=== PATIENT | female | born 1990 | race Caucasian/White ===

== ENCOUNTER 2016-09-30 13:04 | Emergency (ER) | payer OTHER ==
[~2016-09-30 13:04] MED LIST: IBUP800T23 PO; MEDR4PAK3 PO; ROBA750T3 PO
[2016-09-30 13:11] VITALS: BP 145/84; PULSE 89; RESP 16; TEMP 98.3; O2SAT 97
[2016-09-30] MEDS ORDERED: ALPR1TAB3 PO (13:14)
[2016-09-30] MEDS ORDERED: SODIUM CHLOR 0.9% 1000 ML INJ 1,000 ML IV ONE (13:17)
[2016-09-30] MEDS ORDERED: HYDROmorphone HCL PF 1 MG/ML VIAL IV PUSH ONE (13:30)
[2016-09-30] MEDS ORDERED: ONDANSETRON HCL 4 MG/2 ML VIAL IV PUSH ONE (13:30)
--- NOTE | 2016-09-30 13:47 | PD ---
HPI Chief Complaint: Abdominal Pain Time Seen by Provider: 13:42 Travel History International Travel<30 days: No Contact w/Intl Traveler<30days: No Traveled to known affect area: No History of Present Illness HPI 26-year-old female that presents to the ED for evaluation of severe umbilical pain as well as nausea and vomiting. Per patient and coworker there were on a break imaging lunch at a salad place and she started eating her side she felt somewhat upset. Per patient she had a slight ache but it eventually became more severe to the point that now is 10 out of 10. Per patient she does have a history of gastric bypass. She has had no issues since. She denies any other issues. She states that she feels nauseous and vomit. Pain does not radiate. On my exam patient is symptoms severe pain and discomfort. She states that she has an allergy to morphine. She denies any chest pain or shortness of breath. No leg pain or arm pain. Vomited with no blood. No bowel movement issues. These all look for less than an hour ago. Coworker did not eat any of the same salad that the patient ate. PFSH Past Medical History Anxiety: Yes Diminished Hearing: No Gastrointestinal Disorders: Yes ?: Unknown Past Surgical History Other Surgery: Yes (gastric by pass) Social History Alcohol Use: Yes (on occasion) Tobacco Use: No Substance Use: No Allergies-Medications (Allergen,Severity, Reaction): Coded Allergies: Morphine (Verified Allergy, Intermediate, Hives, 09/30/16) Uncoded Allergies: BOUNCE DRYER SHEET OR DETERGENT (Allergy, Severe, Anaphylaxis, 10/11/14) Reported Meds & Prescriptions Reported Meds & Active Scripts Active Zofran (Ondansetron HCl) 4 Mg Tab 4 Mg PO Q6HR PRN Bentyl (Dicyclomine HCl) 20 Mg Tab 20 Mg PO TID Reported Alprazolam 1 Mg Tab 1 Mg PO Q6H PRN Review of Systems General / Constitutional: No: Fever, Chills, Weight Gain, Weight Loss, Other Eyes: No: Diploplia, Blurred Vision, Photophobia, Drainage, Redness, Foreign Body Sensation, Pain, Tearing, Blind Spots, Visual changes, Blindness, Other HENT: No: Headaches, Vertigo, Lightheadedness, Sore Throat, Rhinitis, Rhinorrhea, Congestion, Nosebleed, Neck Stiffness, Neck Pain, Masses, Gingival Bleeding, Dental Difficulties, Ear Discharge, Earache, Other Cardiovascular: No: Chest Pain or Discomfort, Palpitations, Irregular Rhythm, Tachycardia, Diaphoresis, Syncope, Dyspnea on exertion, Varicosities, Edema, Cyanosis, Varicosities, Phlebitis, Claudication, Other Respiratory: No: Cough, Shortness of Breath, Wheezing, Sneezing, Orthopnea, Hemoptysis, Stridor, Night Sweats, Pleuritic Pain, Other Gastrointestinal: Positive: Nausea, Vomiting, Abdominal Pain, No: Diarrhea, Hematemesis, Hematochezia, Constipation, Changes in Bowel Habits, Indigestion, Dysphagia, Loss of Appetite, Other Genitourinary: No: Urgency, Frequency, Dysuria, Nocturia, Hematuria, Decreased Urinary Output, Oliguria, Hesitancy, Dribbling, Incontinence, Pelvic Pain, Flank Pain, Dyspareunia, Discharge, Dysmenorrhea, Menorrhagia, Metorrhagia, Vaginal Bleeding, Other Musculoskeletal: No: Myalgias, Arthralgias, Limited ROM, Weakness, Cramping, Edema, Pain, Atrophy, Other Skin: No Rash, No Itching, No Dryness, No Lumps, No Hives, No Change in Pigmentation, No Change in nails, No Alopecia, No Lesions, No Breast Lumps, No Breast Tenderness, No Breast Swelling, No Other Neurologic: No: Weakness, Dizziness, Syncope, Focal Abnormalities, Coordination Problem, Tremor, Ataxia, Headache, Change in Mentation, Slurred Speech, Paresthesia, Incontinence, Seizures, Sensory Disturbance, Other Psychiatric: No: Anxiety, Depression, Suicidal Ideations, Disorder of Thought, Mood Disorder, Substance Abuse, Homicidal Ideation, Other Endocrine: No: Heat Intolerance, Cold Intolerance, Polyuria, Polydipsia, Other Hematologic/Lymphatic: No: Easy Bruising, Lymph Node Enlargement, Other Physical Exam Narrative GENERAL: SKIN: Warm and dry. HEAD: Atraumatic. Normocephalic. EYES: Pupils equal and round. No scleral icterus. No injection or drainage. ENT: No nasal bleeding or discharge. Mucous membranes pink and moist. Tongue is midline. No uvula deviation. NECK: Trachea midline. No JVD. CARDIOVASCULAR: Regular rate and rhythm. No murmurs, S3, S4. RESPIRATORY: No accessory muscle use. Clear to auscultation. Breath sounds equal bilaterally. GASTROINTESTINAL: Abdomen soft, tender to palpation in the umbilical region, nondistended. Hepatic and splenic margins not palpable. MUSCULOSKELETAL: Extremities without clubbing, cyanosis, or edema. No obvious deformities. Full range of motion of the upper and lower extremities bilaterally. 2+ pulses bilaterally. NEUROLOGICAL: Awake and alert. No obvious cranial nerve deficits. Motor grossly within normal limits. Five out of 5 muscle strength in the arms and legs. Normal speech. PSYCHIATRIC: Appropriate mood and affect; insight and judgment normal. Data Data Last Documented VS Vital Signs Date Time Temp Pulse Resp B/P Pulse Ox O2 Delivery O2 Flow Rate FiO2 09/30/16 14:03 72 18 116/68 98 Room Air 09/30/16 13:11 98.3 Orders Complete Blood Count With Diff (09/30/16 13:17) Comprehensive Metabolic Panel (09/30/16 13:17) Lipase (09/30/16 13:17) Urinalysis - C+S If Indicated (09/30/16 13:17) Iv Access Insert/Monitor (09/30/16 13:17) Ed Urine Pregnancytest Poc (09/30/16 13:17) Ondansetron Inj (Zofran Inj) (09/30/16 13:30) Sodium Chlor 0.9% 1000 Ml Inj (Ns 1000 M (09/30/16 13:17) Hydromorphone Pf Inj (Dilaudid Pf Inj) (09/30/16 13:30) Ct Abd/Pel W Iv Contrast(Rout) (09/30/16 ) Iohexol 350 Inj (Omnipaque 350 Inj) (09/30/16 14:42) Labs Laboratory Tests Test 09/30/16 13:15 White Blood Count 6.8 TH/MM3 Red Blood Count 4.48 MIL/MM3 Hemoglobin 10.5 GM/DL Hematocrit 33.1 % Mean Corpuscular Volume 73.9 FL Mean Corpuscular Hemoglobin 23.4 PG Mean Corpuscular Hemoglobin 31.6 % Concent Red Cell Distribution Width 15.9 % Platelet Count 413 TH/MM3 Mean Platelet Volume 7.6 FL Neutrophils (%) (Auto) 49.6 % Lymphocytes (%) (Auto) 38.0 % Monocytes (%) (Auto) 10.2 % Eosinophils (%) (Auto) 1.5 % Basophils (%) (Auto) 0.7 % Neutrophils # (Auto) 3.4 TH/MM3 Lymphocytes # (Auto) 2.6 TH/MM3 Monocytes # (Auto) 0.7 TH/MM3 Eosinophils # (Auto) 0.1 TH/MM3 Basophils # (Auto) 0.0 TH/MM3 CBC Comment AUTO DIFF Differential Comment AUTO DIFF CONFIRMED Urine Color YELLOW Urine Turbidity CLEAR Urine pH 7.0 Urine Specific [place] 1.017 Urine Protein NEG mg/dL Urine Glucose (UA) NEG mg/dL Urine Ketones NEG mg/dL Urine Occult Blood NEG Urine Nitrite NEG Urine Bilirubin NEG Urine Urobilinogen LESS THAN 2.0 MG/DL Urine Leukocyte Esterase NEG Urine RBC LESS THAN 1 /hpf Urine WBC LESS THAN 1 /hpf Urine Squamous Epithelial <1 /hpf Cells Urine Mucus FEW /lpf Microscopic Urinalysis Comment CULT NOT INDICATED Sodium Level 140 MEQ/L Potassium Level 3.9 MEQ/L Chloride Level 107 MEQ/L Carbon Dioxide Level 22.7 MEQ/L Anion Gap 10 MEQ/L Blood Urea Nitrogen 14 MG/DL Creatinine 0.82 MG/DL Estimat Glomerular Filtration 83 ML/MIN Rate Random Glucose 86 MG/DL Calcium Level 8.9 MG/DL Total Bilirubin 0.2 MG/DL Aspartate Amino Transf 22 U/L (AST/SGOT) Alanine Aminotransferase 26 U/L (ALT/SGPT) Alkaline Phosphatase 71 U/L Total Protein 7.5 GM/DL Albumin 4.0 GM/DL Lipase 160 U/L [facility] Medical Decision Making Medical Screen Exam Complete: Yes Emergency Medical Condition: Yes Medical Record Reviewed: Yes Interpretation(s) CBC & BMP Diagram 09/30/16 13:15 LFTs and lipase within normal limits. Urine negative for acute disease. CT of the abdomen and pelvis show no sign of acute disease. Differential Diagnosis Indigestion versus gastroenteritis versus gastritis versus acute abdomen versus obstruction versus appendicitis Narrative Course 26-year-old female that presents to the ED for evaluation of umbilical pain. Patient was properly examined and was found to have signs and symptoms consistent appears to be likely as enteritis but cannot completely rule out obstruction secondary to the severity of her symptoms and her recent surgery. Patient is agreeable to plan. Patient was given IV fluids as well as pain medications. Labs and imaging ordered. Labs and imaging showed no sign of acute disease. Labs were essentially unremarkable for acute infection. CT was negative. Patient was reassessed after given IV medications and feels much improved. From history and physical this appears to be likely gastroenteritis versus food poisoning. At this time I recommend liquid diet. Case was discussed with my attending Dr. Thapa who evaluated the patient with me and agrees with plan. Patient will be sent home with prescription for Bentyl and Zofran. Told to do liquid diet. See ED for any worsening symptoms. Diagnosis Primary Impression: Food poisoning Qualified Code: T62.91XA - Food poisoning, accidental or unintentional, initial encounter Patient Instructions: General Instructions Departure Forms: Tests/Procedures, Work Release Enter return to work date: Oct 02, 2016 Additional Instructions: Take medication as prescribed. Liquid diet until better. Follow up with PCP. See ED for any worsening symptoms. Med/Other Pt SpecificInfo: Prescription(s) given Scripts Ondansetron (Zofran)4 Mg Tab4 Mg PO Q6HR PRN (NAUSEA OR VOMITING) #20 TAB Prov:Jason Thapa MD 09/30/16 Dicyclomine (Bentyl)20 Mg Tab20 Mg PO TID #20 TAB Prov:Jason Thapa MD 09/30/16 Disposition: 01 DISCHARGE HOME Condition: Stable Chucky Jasso Sep 30, 2016 13:47
[2016-09-30 13:50] LABS: AUTOMATED NEUTROPHIL # 3.4 TH/MM3 (1.8-7.7); BASOPHIL % 0.7 % (0.0-2.0); EOSINOPHIL # 0.1 TH/MM3 (0-0.4); EOSINOPHIL % 1.5 % (0.0-4.0); HEMATOCRIT 33.1 % (35.0-46.0); LYMPHOCYTE # 2.6 TH/MM3 (1.0-4.8); MEAN CELL VOLUME 73.9 FL (80.0-100.0); MEAN CORPUSCULAR HEMOGLOBIN 23.4 PG (27.0-34.0); MEAN CORPUSCULAR HGB CONC 31.6 % (32.0-36.0); MONO % 10.2 % (0.0-8.0); NEUT % 49.6 % (16.0-70.0); PLATELET COUNT 413 TH/MM3 (150-450); RED BLOOD COUNT 4.48 MIL/MM3 (4.00-5.30); RED CELL DISTRIBUTION WIDTH 15.9 % (11.6-17.2); WHITE BLOOD COUNT 6.8 TH/MM3 (4.0-11.0)
[2016-09-30 13:51] LABS: HEMO FLAGS AUTO DIFF
[2016-09-30 14:00] LABS: BLOOD, URINE NEG (NEG); COMMENT (UR) CULT NOT INDICATED; CULTURE IF INDICATED CULT NOT INDICATED; GLUCOSE,URINE NEG (NEG); KETONE, URINE NEG (NEG); MUCUS URINE FEW /lpf (OCC); NITRITE,URINE NEG (NEG); SQUAMOUS EPITHELIAL CELL URINE <1 /hpf (0-5); URINE COLOR YELLOW (YELLW/STRAW)
[2016-09-30 14:03] VITALS: BP 116/68; PULSE 72; RESP 18; O2SAT 98
[2016-09-30 14:16] LABS: ALKALINE PHOSPHATASE 71 U/L (45-117); TOTAL BILIRUBIN ADULT 0.2 MG/DL (0.2-1.0)
[2016-09-30 14:21] LABS: ALT (GPT) 26 U/L (10-53); ANION GAP 10 MEQ/L (5-15); AST (GOT) 22 U/L (15-37); BICARBONATE 22.7 MEQ/L (21.0-32.0); BLOOD UREA NITROGEN 14 MG/DL (7-18); CHLORIDE 107 MEQ/L (98-107); GLOMERULAR FILTRATION RATE 83 ML/MIN (>89); POTASSIUM 3.9 MEQ/L (3.5-5.1); SODIUM (NA) 140 MEQ/L (136-145)
[2016-09-30] MEDS ORDERED: IOHEXOL 350 MG/ML 10 ML VIAL (for RAD DIAG) IV ONE (14:42)
[2016-09-30 14:48] LABS: SCAN/DIFF AUTO DIFF CONFIRMED
--- NOTE | 2016-09-30 15:08 | RADRPT ---
EXAM DATE/TIME: 09/30/2016 14:22 [facility] COMPARISON: No previous studies available for comparison. INDICATIONS : Umbilical pain, nausea and vomiting. IV CONTRAST: 85 cc Omnipaque 350 (iohexol) IV ORAL CONTRAST: No oral contrast ingested. RADIATION DOSE: 10.02 CTDIvol (mGy) MEDICAL HISTORY : None SURGICAL HISTORY : Gastric bypass. ENCOUNTER: Initial ACUITY: 1 day PAIN SCALE: 3/10 LOCATION: Umbilical TECHNIQUE: Volumetric scanning of the abdomen and pelvis was performed. Using automated exposure control and ad justment of the mA and/or kV according to patient size, radiation dose was kept as low as reasonably achievable to obtain optimal diagnostic quality images. FINDINGS: LOWER LUNGS: The visualized lower lungs are clear. LIVER: Homogeneous density without lesion. There is no dilation of the biliary tree. No calcified gallston es. Gallbladder seen as a luminal structure without wall thickening. SPLEEN: Normal size without lesion. PANCREAS: Within normal limits. KIDNEYS: Normal in size and shape. There is no mass, stone or hydronephrosis. ADRENAL GLANDS: Within normal limits. VASCULAR: There is no aortic aneurysm. BOWEL/MESENTERY: The stomach, small bowel, and colon demonstrate no acute abnormality. There is no free intraperitone al air or fluid. Surgical wyatt in the region of the fundus and proximal body of the stomach consis tent with remote gastric bypass surgery. Appendix visualized and is normal ABDOMINAL WALL: Within normal limits. RETROPERITONEUM: There is no lymphadenopathy. BLADDER: No wall thickening or mass. REPRODUCTIVE: Within normal limits. INGUINAL: There is no lymphadenopathy or hernia. MUSCULOSKELETAL: Within normal limits for patient age. CONCLUSION: Remote gastric bypass surgery. Otherwise negative.. Luca King MD on September 30, 2016 at 15:03 Board Certified Radiologist. This report was verified electronically.
[2016-09-30] MEDS ORDERED: BENT20TA PO (15:10)
[2016-09-30] MEDS ORDERED: ZOFR4TAB PO (15:10)
[2016-09-30 15:59] VITALS: BP 112/64
== END 2016-09-30 16:02 | disposition home or self-care (01) ==
LOC: NEPC 13:04
DX: T62.91XA Toxic effect of unspecified noxious substance eaten as food, accidental (unintentional), initial encounter (principal); R10.33 Periumbilical pain; R11.2 Nausea with vomiting, unspecified; Z98.84 Bariatric surgery status; Z86.59 Personal history of other mental and behavioral disorders; Z87.19 Personal history of other diseases of the digestive system
CPT/HCPCS: 74177; 80053; 81001; 83690; 84703; 85025; 96361; 96374; 96375; 99284; J1170; J2405; J7030; Q9967